=== PATIENT | male | born 1950 | race Caucasian/White ===

== ENCOUNTER → 2016-09-20 | Outpatient (CLI) | payer OTHER ==
--- NOTE | 2016-09-24 09:36 | DEXA ---
AP SPINE L1 - L4 1.156 -0.6 -0.4 LT FEMUR TOTAL 0.935 -1.2 -0.6 RT FEMUR TOTAL 0.820 -1.9 -1.4 TOTAL BODY TOTAL OTHER DUAL FEMUR FRAX* ASSESSMENT Risk factors: None. 10 year probability of fracture Major osteoporotic fracture 9.4 % Hip fracture 2.8 % COMMENTS: Normal bone densitometry of the spine. There is low bone density of the left hip. There is osteoporosis of the right hip. The density of the spine is increased 2.5% since 06/27/2011. The density of the left hip has decreased 0.1% since 06/27/2011. The density of the right hip has decreased 1.4% since 06/27/2011. FOLLOW-UP: Recommendation for the next bone density exam: 2 years. JOYCE
== END | disposition home or self-care (01) ==
LOC: M WHC 15:00
PROVIDERS: ATTEND Nurse Practitioner Family
DX: M81.0 Age-related osteoporosis without current pathological fracture (principal); M85.80 Other specified disorders of bone density and structure, unspecified site

== ENCOUNTER → 2016-10-29 | Outpatient (CLI) | payer MEDICARE, OTHER ==
[~2016-10-29] VITALS: Ht 167.6 cm; Wt 85.3 kg
[~2016-10-29] MED LIST: FLOM5CAP PO; HYDR25TAB PO; LIDOCAINE 2% INJ 100 MG/5 ML SYRINGE As Ordered ONE; LISI-542 PO; LR 1,000 ML IV SCH; OMEP40CA2 PO; PROPOFOL 200 MG/20 ML VIAL As Ordered ONE; SIMV40TA2 PO; TOVI8TAB PO
[2016-10-29 14:00] VITALS: BP 138/60
== END ==
LOC: M OPP 11:14
PROVIDERS: ATTEND Surgery
DX: Z12.11 Encounter for screening for malignant neoplasm of colon (principal); K57.30 Diverticulosis of large intestine without perforation or abscess without bleeding; K21.9 Gastro-esophageal reflux disease without esophagitis; K44.9 Diaphragmatic hernia without obstruction or gangrene; K31.7 Polyp of stomach and duodenum; I10 Essential (primary) hypertension; E78.00 Pure hypercholesterolemia, unspecified; R06.83 Snoring; N40.0 Benign prostatic hyperplasia without lower urinary tract symptoms; Z79.899 Other long term (current) drug therapy; Z88.0 Allergy status to penicillin; Z91.013 Allergy to seafood

== ENCOUNTER → 2017-03-07 | Outpatient (CLI) | payer OTHER ==
[~2017-03-07] MED LIST changes: -LIDOCAINE 2% INJ 100 MG/5 ML SYRINGE As Ordered ONE; -LR 1,000 ML IV SCH; -PROPOFOL 200 MG/20 ML VIAL As Ordered ONE
[2017-03-07 13:55] LABS: MEAN CORPUSCULAR HEMOGLOBIN 31.3 pg (27.0-33.0); MEAN CORPUSCULAR HGB CONC 34.4 g/dl (32.0-36.5); MEAN CORPUSCULAR VOLUME 90.8 fl (80.0-96.0); WHITE BLOOD COUNT 9.1 K/mm3 (4.0-10.0)
[2017-03-07 14:03] LABS: ALBUMIN 3.8 GM/DL (3.2-5.2); ALBUMIN/GLOBULIN RATIO 1.15 (1.00-1.93); BILIRUBIN,TOTAL 0.6 MG/DL (0.2-1.0); CALCIUM LEVEL 9.2 MG/DL (8.8-10.2); CREATININE FOR GFR 1.37 MG/DL (0.70-1.30); GLOMERULAR FILTRATION RATE 54.8 (>49); TOTAL PROTEIN 7.1 GM/DL (6.4-8.2)
== END ==
LOC: M WUC 08:56
PROVIDERS: ATTEND Nurse Practitioner Family
DX: K21.9 Gastro-esophageal reflux disease without esophagitis (principal); I10 Essential (primary) hypertension

== ENCOUNTER → 2017-05-07 | Outpatient (CLI) | payer OTHER ==
--- NOTE | 2017-05-07 09:00 | REP ---
RENAL AND BLADDER ULTRASOUND: Real-time sonographic evaluation of the kidneys performed. Kidneys are normal in size and echotexture, right kidney measuring 10.8 x 4.9 x 6.1 cm and left kidney 11.6 x 5.7 x 6.4 cm. There is no hydronephrosis bilaterally. No renal mass or nephrolithiasis is seen. Urinary bladder is not well distended measuring 4.2 x 2.1 x 4.6 cm with a total volume of 26 mL. There is no postvoid residual. IMPRESSION: No hydronephrosis. Urinary bladder not well evaluated. Signed by Marcos Perkins MD 05/07/2017 09:41 A
== END ==
LOC: M RAD 08:02
PROVIDERS: ATTEND Internal Medicine Nephrology
DX: N18.3 Chronic kidney disease, stage 3 (moderate) (principal)

== ENCOUNTER → 2017-11-06 | Outpatient (CLI) | payer OTHER | LOC: M WUC 09:29 | DX: N40.1 Benign prostatic hyperplasia with lower urinary tract symptoms (principal); Z12.5 Encounter for screening for malignant neoplasm of prostate | CPT/HCPCS: 84153 ==

== ENCOUNTER → 2018-03-27 | Outpatient (CLI) | payer OTHER ==
[2018-03-27 13:01] LABS: HEMATOCRIT 41.1 % (42.0-52.0); HEMOGLOBIN 13.8 g/dl (13.5-17.5); MEAN CORPUSCULAR HEMOGLOBIN 30.5 pg (27.0-33.0); MEAN CORPUSCULAR HGB CONC 33.6 g/dl (32.0-36.5); MEAN CORPUSCULAR VOLUME 90.7 fl (80.0-96.0); PLATELET COUNT, AUTOMATED 204 10^3/uL (150-450); RED BLOOD COUNT 4.53 10^6/uL (4.30-6.10); RED CELL DISTRIBUTION WIDTH 13.2 % (11.5-14.5); WHITE BLOOD COUNT 7.2 10^3/uL (4.0-10.0)
[2018-03-27 13:47] LABS: TOTAL 25(OH) VITAMIN D 47.5 NG/ML (30.0-100.0)
[2018-03-27 13:50] LABS: ALBUMIN 3.6 GM/DL (3.2-5.2); ALBUMIN/GLOBULIN RATIO 1.09 (1.00-1.93); ALKALINE PHOSPHATASE 50 U/L (45-117); ALT/SGPT 108 U/L (12-78); ANION GAP 6 MEQ/L (8-16); AST/SGOT 46 U/L (7-37); BILIRUBIN,TOTAL 0.6 MG/DL (0.2-1.0); BLOOD UREA NITROGEN 20 MG/DL (7-18); CALCIUM LEVEL 8.4 MG/DL (8.8-10.2); CARBON DIOXIDE LEVEL 33 MEQ/L (21-32); CHLORIDE LEVEL 105 MEQ/L (98-107); CHOLESTEROL LEVEL 139 MG/DL (<200); CHOLESTEROL RISK RATIO 3.971 (<5); CREATININE FOR GFR 1.29 MG/DL (0.70-1.30); GLOMERULAR FILTRATION RATE 58.6 (>42); GLUCOSE, FASTING 115 MG/DL (70-100); HDL CHOLESTEROL 35 MG/DL (>40); NON-HDL-C 104 MG/DL; POTASSIUM SERUM 3.7 MEQ/L (3.5-5.1); SODIUM LEVEL 144 MEQ/L (136-145); TOTAL PROTEIN 6.9 GM/DL (6.4-8.2); TRIGLYCERIDES LEVEL 130 MG/DL (<150)
== END ==
LOC: M WUC 09:31
DX: I10 Essential (primary) hypertension (principal); E78.4 Other hyperlipidemia; E55.9 Vitamin D deficiency, unspecified
CPT/HCPCS: 80053

== ENCOUNTER → 2018-09-30 | Outpatient (CLI) | payer OTHER ==
[~2018-09-30] MED LIST changes: +FLOM0.4C39 PO; -FLOM5CAP PO
[2018-09-30 12:27] LABS: ALBUMIN 3.7 GM/DL (3.2-5.2); BILIRUBIN,DIRECT 0.1 MG/DL (0.0-0.2); BILIRUBIN,TOTAL 0.5 MG/DL (0.2-1.0); CHOLESTEROL RISK RATIO 5.411 (<5); TOTAL PROTEIN 6.9 GM/DL (6.4-8.2)
== END ==
LOC: M WUC 10:16
PROVIDERS: ATTEND Nurse Practitioner Family
DX: E78.49 Other hyperlipidemia (principal)

== ENCOUNTER → 2018-12-29 | Outpatient (CLI) | payer OTHER ==
[2018-12-29 13:11] LABS: ALBUMIN 3.5 GM/DL (3.2-5.2); BILIRUBIN,DIRECT 0.2 MG/DL (0.0-0.2); BILIRUBIN,TOTAL 0.8 MG/DL (0.2-1.0); CHOLESTEROL RISK RATIO 4.606 (<5); TOTAL PROTEIN 7.2 GM/DL (6.4-8.2)
== END ==
LOC: M WUC 09:28
PROVIDERS: ATTEND Nurse Practitioner Family
DX: E78.49 Other hyperlipidemia (principal)

== ENCOUNTER 2019-01-12 15:29 | Emergency (ER) | payer OTHER ==
[~2019-01-12] VITALS: Ht 167.6 cm; Wt 90.9 kg
[2019-01-12] MEDS ORDERED: FINA5TAB2 (15:39)
[2019-01-12] MEDS ORDERED: VITA500045 (15:39)
[2019-01-12 15:56] LABS: BASO # 0.1 10^3/uL (0.0-0.2); BASO % 0.7 % (0.0-1.0); EOS # 0.2 10^3/uL (0.0-0.50); EOS % 2.3 % (0.0-3.0); HEMATOCRIT 46.7 % (42.0-52.0); HEMOGLOBIN 15.6 g/dl (13.5-17.5); LYMPH # 2.2 10^3/uL (1.5-4.5); LYMPH % 26.9 % (24.0-44.0); MEAN CORPUSCULAR HEMOGLOBIN 30.7 pg (27.0-33.0); MEAN CORPUSCULAR HGB CONC 33.4 g/dl (32.0-36.5); MEAN CORPUSCULAR VOLUME 91.9 fl (80.0-96.0); MONO # 0.5 10^3/uL (0.0-0.8); MONO % 6.4 % (0.0-5.0); NEUTROPHILS # 5.1 10^3/uL (1.8-7.7); NEUTROPHILS % 63.3 % (36.0-66.0); PLATELET COUNT, AUTOMATED 216 10^3/uL (150-450); RED BLOOD COUNT 5.08 10^6/uL (4.30-6.10); WHITE BLOOD COUNT 8.1 10^3/uL (4.0-10.0)
--- NOTE | 2019-01-12 16:03 | REP ---
Clinical: Acute chest pain . Comparison: 10/27/2012 Findings: The mediastinum and cardiac silhouette are stable and within normal limits for portable technique. The lung gregorio are clear without acute consolidation, effusion, or pneumothorax. Skeletal structures are intact. Impression: No acute cardiopulmonary process appreciated. Electronically Signed by Long Alford MD 01/12/2019 03:55 P
[2019-01-12] MEDS ORDERED: GI COCKTAIL 50ML BTL(HYOSCYAMINE/MAALOX/LIDOCAINE VISCOUS)(1:3:1) PO ONE (16:15)
[2019-01-12] MEDS ORDERED: ASPIRIN 325 MG TAB PO ONE (16:15)
[2019-01-12 16:24] LABS: INR 0.97
[2019-01-12 16:25] LABS: PARTIAL THROMBOPLASTIN TIME 46.2 SECONDS (25.4-37.6)
[2019-01-12 16:32] LABS: ALBUMIN 4.1 GM/DL (3.2-5.2); ALT/SGPT 115 U/L (12-78); BILIRUBIN,DIRECT 0.2 MG/DL (0.0-0.2); BILIRUBIN,TOTAL 0.6 MG/DL (0.2-1.0); BLOOD UREA NITROGEN 26 MG/DL (7-18); CALCIUM LEVEL 9.4 MG/DL (8.8-10.2); CARBON DIOXIDE LEVEL 30 MEQ/L (21-32); CHLORIDE LEVEL 106 MEQ/L (98-107); CPK CREATINE PHOSPHOKINASE 123 U/L (39-308); CREATININE FOR GFR 1.25 MG/DL (0.70-1.30); GLOMERULAR FILTRATION RATE > 60.0 (>42); GLUCOSE, FASTING 82 MG/DL (70-100); MB/CK RELATIVE INDEX 1.79 (< OR =4); POTASSIUM SERUM 3.8 MEQ/L (3.5-5.1); SODIUM LEVEL 142 MEQ/L (136-145); TOTAL PROTEIN 7.5 GM/DL (6.4-8.2); TROPONIN I < 0.02 NG/ML (< 0.10)
[2019-01-12] MEDS ORDERED: KETOROLAC 30 MG/ML VIAL (J1885) IV ONE (19:30)
[2019-01-12 20:42] LABS: CPK CREATINE PHOSPHOKINASE 110 U/L (39-308); MB/CK RELATIVE INDEX 1.55 (< OR =4); TROPONIN I < 0.02 NG/ML (< 0.10)
--- NOTE | 2019-01-12 21:10 | ECGEPIP ---
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
--- NOTE | 2019-01-12 21:16 | ECGEPIP ---
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
[2019-01-12] MEDS ORDERED: SUCR1TA PO (21:31)
[2019-01-12] MEDS ORDERED: ASPI81TA85 PO (21:31)
[2019-01-12 21:45] VITALS: BP 151/96
== END 2019-01-12 22:07 | disposition home or self-care (01) ==
LOC: M ED 15:29
DX: K21.9 Gastro-esophageal reflux disease without esophagitis (principal); I10 Essential (primary) hypertension; J45.909 Unspecified asthma, uncomplicated; N40.0 Benign prostatic hyperplasia without lower urinary tract symptoms; E78.5 Hyperlipidemia, unspecified; Z87.19 Personal history of other diseases of the digestive system; Z79.899 Other long term (current) drug therapy; Z88.0 Allergy status to penicillin; Z91.018 Allergy to other foods; F17.210 Nicotine dependence, cigarettes, uncomplicated
CPT/HCPCS: 71045; 80048; 80076; 82550; 82553; 84484; 85025; 85610; 85730; 93005; 93041; 94760; 96374; 99285; J1885

== ENCOUNTER → 2019-01-25 | Outpatient (CLI) | payer OTHER ==
[~2019-01-25] MED LIST changes: +ASPI81TA85 PO; +FINA5TAB2; +SUCR1TA PO; +VITA500045
--- NOTE | 2019-01-25 09:23 | REP ---
Right upper quadrant sonography: History: Abnormal liver function studies. Comparison study: No comparison sonography. Findings: Scanning through the right upper quadrant of the abdomen demonstrates a normal sized, thin-walled gallbladder without evidence of stone or polyp. Common bile duct is normal measuring 0.3 cm in greatest diameter. No focal liver lesion is seen. There is evidence of mild fatty infiltration of the liver. Liver size is normal. No pancreatic abnormality is observed. No right renal abnormality is seen. There is no evidence of ascites. The right kidney measures 10.3 x 4.4 x 5.1 cm. Impression: Evidence of mild fatty liver change. Otherwise negative right upper quadrant sonography. Electronically Signed by Nathen Loredo MD 01/25/2019 09:15 A
== END ==
LOC: M RAD 07:05
PROVIDERS: ATTEND Family Medicine
DX: R94.5 Abnormal results of liver function studies (principal)

== ENCOUNTER → 2019-01-28 | Outpatient (CLI) | payer OTHER ==
--- NOTE | 2019-02-02 07:43 | SLEEPHOME ---
DATE OF PROCEDURE: 01/28/2019 ORDERED BY: Dr. De La Cruz Diagnostic home sleep testing was performed due to concern for the obstructive sleep apnea syndrome. For testing, a nocturnal T3 respiratory monitoring device was used. Continuous record was made of pulse, oxygen saturation, airflow, chest and abdominal strain and body position. 10 hours and 59 minutes of data were reviewed. There were 7 hours and 35 minutes marked as time in bed. During the interval marked time in bed, there were 134 respiratory events identified of 10 seconds in duration or greater for a respiratory event index of 17.7. The events were obstructive. Baseline pulse rate 52 beats per minute, pulse rate ranged 45-85. Baseline saturation 94%. Saturations fell to 90%. Testing was performed in both the supine and nonsupine positions. IMPRESSION: Abnormal home sleep testing with repetitive respiratory events and oxygen desaturations to 90% with a respiratory event index of 17.7 is consistent with the obstructive sleep apnea syndrome. RECOMMENDATIONS: The patient should be referred for formal sleep evaluation.
== END ==
LOC: M SLEEP HO 09:41
PROVIDERS: ATTEND Internal Medicine Cardiovascular Disease
DX: R06.83 Snoring (principal)

== ENCOUNTER → 2019-04-16 | Outpatient (CLI) | payer OTHER ==
[~2019-04-16] MED LIST changes: -OMEP40CA2 PO; +OMEP40CA97 PO; -SIMV40TA2 PO; +SIMV40TA20 PO
[2019-04-16 13:10] LABS: HEMATOCRIT 42.9 % (42.0-52.0); HEMOGLOBIN 14.1 g/dl (13.5-17.5); MEAN CORPUSCULAR HGB CONC 32.9 g/dl (32.0-36.5); MEAN CORPUSCULAR VOLUME 94.3 fl (80.0-96.0); PLATELET COUNT, AUTOMATED 196 10^3/uL (150-450); RED BLOOD COUNT 4.55 10^6/uL (4.30-6.10)
[2019-04-16 13:20] LABS: ALBUMIN 3.6 GM/DL (3.2-5.2); BILIRUBIN,TOTAL 0.5 MG/DL (0.2-1.0); CALCIUM LEVEL 8.9 MG/DL (8.8-10.2); CHOLESTEROL RISK RATIO 3.848 (<5); CREATININE FOR GFR 1.36 MG/DL (0.70-1.30); POTASSIUM SERUM 4.7 MEQ/L (3.5-5.1); TOTAL PROTEIN 6.8 GM/DL (6.4-8.2)
[2019-04-16 13:23] LABS: TOTAL 25(OH) VITAMIN D 60.8 NG/ML (30.0-100.0)
[2019-04-16 13:35] LABS: HEMOGLOBIN A1c 5.7 %
== END ==
LOC: M WUC 09:08
PROVIDERS: ATTEND Nurse Practitioner Family
DX: K21.9 Gastro-esophageal reflux disease without esophagitis (principal); I10 Essential (primary) hypertension; R73.01 Impaired fasting glucose; E78.49 Other hyperlipidemia; E55.9 Vitamin D deficiency, unspecified

== ENCOUNTER → 2020-04-21 | Outpatient (CLI) | payer OTHER ==
[~2020-04-21] MED LIST changes: -ASPI81TA85 PO; +ASPI81TA86 PO
[2020-04-21 19:19] LABS: HEMATOCRIT 46.1 % (42.0-52.0); HEMOGLOBIN 14.9 g/dl (13.5-17.5); MEAN CORPUSCULAR HEMOGLOBIN 30.6 pg (27.0-33.0); MEAN CORPUSCULAR HGB CONC 32.3 g/dl (32.0-36.5); MEAN CORPUSCULAR VOLUME 94.7 fl (80.0-96.0); PLATELET COUNT, AUTOMATED 229 10^3/uL (150-450); RED BLOOD COUNT 4.87 10^6/uL (4.30-6.10)
[2020-04-21 20:09] LABS: ALBUMIN 3.7 GM/DL (3.2-5.2); BILIRUBIN,TOTAL 0.4 MG/DL (0.2-1.0); CALCIUM LEVEL 9.2 MG/DL (8.8-10.2); CHOLESTEROL RISK RATIO 5.129 (<5); CREATININE FOR GFR 1.44 MG/DL (0.70-1.30); GLOMERULAR FILTRATION RATE 51.3 (>42); POTASSIUM SERUM 4.3 MEQ/L (3.5-5.1); TOTAL 25(OH) VITAMIN D 40.3 NG/ML (30.0-100.0); TOTAL PROTEIN 7.3 GM/DL (6.4-8.2)
== END ==
LOC: M WUC 10:46
PROVIDERS: ATTEND Nurse Practitioner Family
DX: K21.9 Gastro-esophageal reflux disease without esophagitis (principal); I10 Essential (primary) hypertension; E78.5 Hyperlipidemia, unspecified; E55.9 Vitamin D deficiency, unspecified

== ENCOUNTER → 2020-07-25 | Outpatient (CLI) | payer OTHER ==
[2020-07-25 16:33] LABS: HEMATOCRIT 45.9 % (42.0-52.0); HEMOGLOBIN 14.4 g/dl (13.5-17.5); MEAN CORPUSCULAR HGB CONC 31.4 g/dl (32.0-36.5); MEAN CORPUSCULAR VOLUME 92.5 fl (80.0-96.0); PLATELET COUNT, AUTOMATED 233 10^3/uL (150-450); RED BLOOD COUNT 4.96 10^6/uL (4.30-6.10); WHITE BLOOD COUNT 8.4 10^3/uL (4.0-10.0)
[2020-07-25 16:37] LABS: ALBUMIN 4.2 GM/DL (3.2-5.2); BILIRUBIN,TOTAL 0.8 MG/DL (0.2-1.0); CALCIUM LEVEL 9.7 MG/DL (8.8-10.2); CHOLESTEROL RISK RATIO 4.378 (<5); CREATININE FOR GFR 1.47 MG/DL (0.70-1.30); GLOMERULAR FILTRATION RATE 50.1 (>42); POTASSIUM SERUM 4.7 MEQ/L (3.5-5.1); TOTAL PROTEIN 7.7 GM/DL (6.4-8.2)
== END ==
LOC: M WUC 13:42
PROVIDERS: ATTEND Nurse Practitioner Family
DX: K21.9 Gastro-esophageal reflux disease without esophagitis (principal); E78.5 Hyperlipidemia, unspecified; E55.9 Vitamin D deficiency, unspecified; I10 Essential (primary) hypertension

== ENCOUNTER → 2020-09-15 | Outpatient (CLI) | payer OTHER ==
--- NOTE | 2020-09-15 09:56 | REP ---
INDICATION: FAMILY HISTORY AAA. COMPARISON: None. TECHNIQUE: Retroperitoneal sonography. Abdominal aortic evaluation. FINDINGS: Scanning through the retroperitoneum demonstrates that the abdominal aorta is obscured by abdominal gas proximally at the diaphragmatic hiatus and renal artery origin level.. The measurements of the aorta at the level of the mid abdominal aorta is 2.0 x 2.0 cm, AP by transverse dimension respectively. The distal aorta tapers to 1.8 x 1.7 cm AP by transverse dimension. The right and left common iliac arteries are normal measuring 0.9 and 0.9 cm in AP dimension respectively. No aneurysm is seen. No periaortic disease is observed. IMPRESSION: The proximal abdominal aorta is obscured by bowel gas at the level of the diaphragmatic hiatus and renal artery origins. No infrarenal abdominal aortic aneurysm is seen.. <Electronically signed by Jonatan Loredo > 09/15/20 [id number]
== END ==
LOC: M RAD 08:56
PROVIDERS: ATTEND Internal Medicine Cardiovascular Disease
DX: Z79.899 Other long term (current) drug therapy (principal); Z82.49 Family history of ischemic heart disease and other diseases of the circulatory system

== ENCOUNTER → 2020-10-26 | Outpatient (CLI) | payer OTHER ==
[~2020-10-26] MED LIST changes: +HYDR-3490 PO; -HYDR25TAB PO; -LISI-542 PO; +LISI-898 PO
[2020-10-26 16:33] LABS: ALBUMIN 3.7 GM/DL (3.2-5.2); BILIRUBIN,TOTAL 0.7 MG/DL (0.2-1.0); CALCIUM LEVEL 9.4 MG/DL (8.8-10.2); CREATININE FOR GFR 1.58 MG/DL (0.70-1.30); GLOMERULAR FILTRATION RATE 46.1 (>42); POTASSIUM SERUM 4.2 MEQ/L (3.5-5.1); TOTAL PROTEIN 6.9 GM/DL (6.4-8.2)
== END ==
LOC: M WUC 13:00
PROVIDERS: ATTEND Nurse Practitioner Family
DX: I10 Essential (primary) hypertension (principal)

== ENCOUNTER → 2020-11-10 | Outpatient (CLI) | payer OTHER ==
--- NOTE | 2020-11-10 17:29 | REP ---
INDICATION: LUNG SCREENING. COMPARISON: None. TECHNIQUE: The study is performed without IV contrast. The images are presented at lung windowing only. FINDINGS: There is a 7 mm lung nodule peripherally in the right upper lobe on image 38. There is a 6 mm pleural-based lung nodule peripherally in the right upper lobe on image 49. There is a pleural-based 6 mm lung nodule in the left lower lobe on image 70. All of the is nodules are category 3 lung nodules with the probability of malignancy 1-2%. Follow-up chest CT in 6 months is recommended. There are no other lung nodules. There are no infiltrates or pleural effusions. IMPRESSION: Category 3 low-dose lung screening CT of the chest. The probability of malignancy is 1-2%. Follow-up chest CT in 6 months is recommended for further evaluation of these nodules. <Electronically signed by Marcos Espitia > 11/10/20 [id number]
== END ==
LOC: M RAD 14:54
PROVIDERS: ATTEND Physician Assistant
DX: Z12.2 Encounter for screening for malignant neoplasm of respiratory organs (principal); R91.8 Other nonspecific abnormal finding of lung field; Z87.891 Personal history of nicotine dependence

== ENCOUNTER → 2021-01-25 | Outpatient (CLI) | payer OTHER ==
[2021-01-25 09:45] LABS: HEMATOCRIT 46.9 % (42.0-52.0); HEMOGLOBIN 15.1 g/dl (13.5-17.5); MEAN CORPUSCULAR HEMOGLOBIN 29.7 pg (27.0-33.0); MEAN CORPUSCULAR HGB CONC 32.2 g/dl (32.0-36.5); MEAN CORPUSCULAR VOLUME 92.1 fl (80.0-96.0); PLATELET COUNT, AUTOMATED 217 10^3/uL (150-450); RED BLOOD COUNT 5.09 10^6/uL (4.30-6.10); WHITE BLOOD COUNT 8.8 10^3/uL (4.0-10.0)
[2021-01-25 10:19] LABS: ALBUMIN 3.9 GM/DL (3.2-5.2); BILIRUBIN,TOTAL 0.6 MG/DL (0.2-1.0); CALCIUM LEVEL 9.6 MG/DL (8.8-10.2); CHOLESTEROL RISK RATIO 4.8 (<5); CREATININE FOR GFR 1.39 MG/DL (0.70-1.30); GLOMERULAR FILTRATION RATE 53.5 (>42); POTASSIUM SERUM 4.7 MEQ/L (3.5-5.1); TOTAL PROTEIN 7.5 GM/DL (6.4-8.2)
[2021-01-25 10:23] LABS: TOTAL 25(OH) VITAMIN D 34.8 NG/ML (30.0-100.0)
[2021-01-25 10:45] LABS: HEMOGLOBIN A1c 5.8 %
== END ==
LOC: M WUC 08:38
PROVIDERS: ATTEND Nurse Practitioner Family
DX: I10 Essential (primary) hypertension (principal); K21.9 Gastro-esophageal reflux disease without esophagitis; R73.01 Impaired fasting glucose; E78.5 Hyperlipidemia, unspecified; E55.9 Vitamin D deficiency, unspecified

== ENCOUNTER → 2021-05-16 | Outpatient (CLI) | payer OTHER ==
[~2021-05-16] MED LIST changes: +OMEP40CA4 PO; -OMEP40CA97 PO
[2021-05-16 12:34] LABS: ALBUMIN 3.5 GM/DL (3.2-5.2); BILIRUBIN,TOTAL 0.7 MG/DL (0.2-1.0); CALCIUM LEVEL 8.5 MG/DL (8.8-10.2); CHOLESTEROL RISK RATIO 4.531 (<5); CREATININE FOR GFR 1.5 MG/DL (0.70-1.30); GLOMERULAR FILTRATION RATE 48.8 (>42); POTASSIUM SERUM 3.9 MEQ/L (3.5-5.1); TOTAL 25(OH) VITAMIN D 34.4 NG/ML (30.0-100.0); TOTAL PROTEIN 7.1 GM/DL (6.4-8.2)
== END ==
LOC: M WUC 09:30
PROVIDERS: ATTEND Nurse Practitioner Family
DX: E78.5 Hyperlipidemia, unspecified (principal); E55.9 Vitamin D deficiency, unspecified; Z79.899 Other long term (current) drug therapy

== ENCOUNTER → 2021-06-11 | Outpatient (CLI) | payer OTHER ==
--- NOTE | 2021-06-11 09:27 | REP ---
INDICATION: ABN FINDING OF LUNG- HAS US APPT 0800. COMPARISON: None. TECHNIQUE: Imaging protocol: Computed tomography of the chest without IV contrast. Contiguous 3 mm thick axial projection images were obtained through the chest. 2D sagittal and coronal reconstructions were performed. Radiation optimization: All CT scans at this facility use at least one of these dose optimization techniques: automated exposure control; mA and/or kV adjustment per patient size (includes targeted exams where dose is matched to clinical indication); or iterative reconstruction. FINDINGS: Lower neck: The thyroid gland is normal. There is no supraclavicular lymphadenopathy. Mediastinum: There are few, not pathologically enlarged, mediastinal lymph nodes. Heart/thoracic aorta: The heart size is normal. There is no pericardial effusion. There is calcific vascular disease of the thoracic aorta and coronary arteries. Upper abdomen: There is fatty liver infiltration. There is a benign splenule anterior to the spleen. There is calcific vascular disease of the abdominal aorta. Thoracic esophagus: Normal. Chest wall and axilla: There is bilateral gynecomastia. There is no axillary lymphadenopathy. There are no significant bony abnormalities of the chest. Lung parenchyma: There is moderate upper lobe predominant emphysema with both centrilobular and paraseptal components. There is a 5 x 4 mm soft tissue density nodule in the anterior segment of the upper lobe of the right lung (image 45). There is a 4 x 3 mm pleural based soft tissue density nodule in the middle lobe the right lung (image 57), consistent with a pleural lymph node. There is a 4 x 4 mm pleural based soft tissue density nodule in the lateral basal segment of the lower lobe of the left lung (image 73), consistent with a pleural lymph node. There are no pleural effusions. IMPRESSION: 1. Emphysema. 2. Soft tissue density nodule in the upper lobe of the right lung. 3. Reactive pleural lymph nodes bilaterally. 4. Calcific vascular disease of the thoracoabdominal aorta and coronary arteries. 5. Fatty liver infiltration. 6. Bilateral gynecomastia. RECOMMENDATION: Follow-up low-dose chest CT in 6 months. <Electronically signed by Jose F Lilly > 06/11/21 [id number]
== END ==
LOC: M RAD 07:47
PROVIDERS: ATTEND Physician Assistant
DX: R91.8 Other nonspecific abnormal finding of lung field (principal)

== ENCOUNTER → 2021-06-11 | Outpatient (CLI) | payer OTHER ==
--- NOTE | 2021-06-11 08:34 | REP ---
INDICATION: FATTY LIVER. COMPARISON: None. TECHNIQUE: Multiple ultrasound images of the right upper quadrant of the abdomen were obtained. FINDINGS: There is moderate fatty liver infiltration. There is focal sparing adjacent to the gallbladder fossa. The gallbladder appears normal. The gallbladder wall is normal in thickness. The common bile duct measures 4 mm in diameter. Pancreas is obscured by overlying bowel gas. The right kidney measures 11.2 x 5.9 x 5.3 cm. There is a 14 mm in diameter cortical cyst in the interpolar region of the right kidney. IMPRESSION: 1. Fatty liver infiltration. 2. Benign cortical cyst, right kidney. <Electronically signed by Jose F Lilly > 06/11/21 [id number]
== END ==
LOC: M RAD 07:44
PROVIDERS: ATTEND Family Medicine
DX: K76.0 Fatty (change of) liver, not elsewhere classified (principal)

== ENCOUNTER 2021-07-19 16:53 | Emergency (ER) | payer OTHER ==
[~2021-07-19] VITALS: Ht 167.6 cm; Wt 95.5 kg
[~2021-07-19 16:53] MED LIST changes: -LISI-898 PO; +LISI5TAB11 PO
[2021-07-19] MEDS ORDERED: ADVA230A (16:59)
[2021-07-19] MEDS ORDERED: ALBU8.5H (16:59)
[2021-07-19] MEDS ORDERED: INCR1INH (16:59)
[2021-07-20] MEDS ORDERED: NORCO 5/325MG TABLET (BULK FOR ED) PO ONE (02:55)
[2021-07-20] MEDS ORDERED: HYDR-3713 PO (02:59)
[2021-07-20 03:17] VITALS: BP 160/78
== END 2021-07-20 03:19 | disposition home or self-care (01) ==
LOC: M ED 16:53
DX: S22.32XA Fracture of one rib, left side, initial encounter for closed fracture (principal); S80.212A Abrasion, left knee, initial encounter; W01.0XXA Fall on same level from slipping, tripping and stumbling without subsequent striking against object, initial encounter; Y92.009 Unspecified place in unspecified non-institutional (private) residence as the place of occurrence of the external cause; Y93.9 Activity, unspecified; Y99.9 Unspecified external cause status; J45.909 Unspecified asthma, uncomplicated; E78.5 Hyperlipidemia, unspecified; N40.0 Benign prostatic hyperplasia without lower urinary tract symptoms; Z88.0 Allergy status to penicillin; Z91.013 Allergy to seafood; Z79.82 Long term (current) use of aspirin; Z79.899 Other long term (current) drug therapy

== ENCOUNTER → 2021-11-19 | Outpatient (CLI) | payer OTHER ==
[~2021-11-19] MED LIST changes: +ADVA230A; +ALBU8.5H; +HYDR-3713 PO; +INCR1INH
[2021-11-19 13:18] LABS: HEMOGLOBIN A1c 5.7 %
[2021-11-19 13:40] LABS: ALBUMIN 3.5 GM/DL (3.2-5.2); BILIRUBIN,TOTAL 0.7 MG/DL (0.2-1.0); CALCIUM LEVEL 8.9 MG/DL (8.8-10.2); CHOLESTEROL RISK RATIO 4.764 (<5); CREATININE FOR GFR 1.48 MG/DL (0.70-1.30); GLOMERULAR FILTRATION RATE 49.6 (>42); POTASSIUM SERUM 4.3 MEQ/L (3.5-5.1); TOTAL PROTEIN 6.9 GM/DL (6.4-8.2)
== END ==
LOC: M WUC 09:27
PROVIDERS: ATTEND Family Medicine
DX: K76.0 Fatty (change of) liver, not elsewhere classified (principal); R73.03 Prediabetes; E78.5 Hyperlipidemia, unspecified

== ENCOUNTER → 2022-06-27 | Outpatient (CLI) | payer OTHER | LOC: M RAD 13:53 | PROVIDERS: ATTEND Physician Assistant | DX: Z87.891 Personal history of nicotine dependence (principal) ==

== ENCOUNTER → 2022-09-06 | Outpatient (CLI) | payer OTHER ==
[2022-09-06 17:17] LABS: HEMATOCRIT 45.5 % (42.0-52.0); HEMOGLOBIN 14.5 g/dl (13.5-17.5); MEAN CORPUSCULAR HEMOGLOBIN 30.1 pg (27.0-33.0); MEAN CORPUSCULAR HGB CONC 31.9 g/dl (32.0-36.5); MEAN CORPUSCULAR VOLUME 94.6 fl (80.0-96.0); PLATELET COUNT, AUTOMATED 251 10^3/uL (150-450); RED BLOOD COUNT 4.81 10^6/uL (4.30-6.10); WHITE BLOOD COUNT 9.1 10^3/uL (4.0-10.0)
[2022-09-06 17:26] LABS: HEMOGLOBIN A1c 6.1 % (4.0-6.0)
[2022-09-06 17:34] LABS: ALBUMIN 3.8 G/DL (3.2-5.2); BILIRUBIN,TOTAL 0.7 MG/DL (0.3-1.2); CHOLESTEROL RISK RATIO 5.92 (<5); CREATININE FOR GFR 1.46 MG/DL (0.70-1.30); GLOMERULAR FILTRATION RATE 50.2 (>42); HDL CHOLESTEROL 28.7 MG/DL (>40); LDL CHOLESTEROL 94.1 MG/DL (<100); POTASSIUM SERUM 4.2 MMOL/L (3.5-5.1); TOTAL PROTEIN 7.4 G/DL (5.7-8.2)
== END ==
LOC: M WUC 11:02
PROVIDERS: ATTEND Nurse Practitioner Family
DX: E78.5 Hyperlipidemia, unspecified (principal); K21.9 Gastro-esophageal reflux disease without esophagitis; K76.0 Fatty (change of) liver, not elsewhere classified; R73.03 Prediabetes; N40.1 Benign prostatic hyperplasia with lower urinary tract symptoms
CPT/HCPCS: 36415; 80053; 80061; 82977; 83036; 85027; G0103

== ENCOUNTER → 2022-09-18 | Outpatient (REF) | payer OTHER | LOC: M SFHCCLAY 14:55 | PROVIDERS: ATTEND Nurse Practitioner Family | DX: R73.03 Prediabetes (principal); Z53.9 Procedure and treatment not carried out, unspecified reason ==

== ENCOUNTER → 2022-10-07 | Outpatient (CLI) | payer OTHER ==
[2022-10-07 17:58] LABS: FREE T4 0.98 NG/DL (0.89-1.76)
[2022-10-07 17:59] LABS: THYROID STIMULATING HORMONE 1.047 uIU/ML (0.55-4.78)
== END ==
LOC: M WUC 14:29
PROVIDERS: ATTEND Nurse Practitioner Family
DX: R73.03 Prediabetes (principal)

== ENCOUNTER → 2022-10-09 | Outpatient (REF) | payer OTHER ==
[2022-10-09 16:02] LABS: APPEARANCE, URINE CLEAR (CLEAR); BACTERIA, URINE AUTO NEGATIVE (NEGATIVE); BILIRUBIN, URINE AUTO NEGATIVE (NEGATIVE); BLOOD, URINE BLOOD NEGATIVE (NEGATIVE); COLOR, URINE YELLOW (YELLOW); GLUCOSE, URINE (UA) AUTO 1+ mg/dL (NEGATIVE); KETONE, URINE AUTO NEGATIVE (NEGATIVE); LEUKOCYTE ESTERASE, URINE AUTO NEGATIVE (NEGATIVE); MUCUS, URINE SMALL (NEGATIVE); NITRITE, URINE AUTO NEGATIVE (NEGATIVE); PROTEIN, URINE AUTO NEGATIVE (NEGATIVE); RBC, URINE AUTO 0 /HPF (0-3); SPECIFIC GRAVITY URINE AUTO 1.023 (1.002-1.035); SQUAMOUS EPITHELIAL CELL UR AU 1 /HPF (0-6); WBC, URINE AUTO 1 /HPF (0-3)
== END ==
LOC: M SMT 15:19
PROVIDERS: ATTEND Physician Assistant
DX: N40.1 Benign prostatic hyperplasia with lower urinary tract symptoms (principal)

== ENCOUNTER 2023-01-02 07:59 | Day surgery (SDC) | payer OTHER ==
[~2023-01-02] VITALS: Ht 167.6 cm; Wt 100.7 kg
[~2023-01-02 07:59] MED LIST changes: -ADVA230A; +ADVA230A INH; -ALBU8.5H; +ALBU8.5H INH; +BAYE81TA10 PO; +ERGO500029 PO; -FINA5TAB2; +FINA5TAB2 PO; -INCR1INH; +INCR1INH INH; +NS 1,000 ML IV ONE; +OMEP40CA5 PO; +SENN-83 PO; +SIMV20TA22 PO
[2023-01-02 10:00] VITALS: BP 117/87
== END 2023-01-02 10:10 | disposition home or self-care (01) ==
LOC: M OPP 07:59
PROVIDERS: ATTEND Internal Medicine Gastroenterology
DX: Z12.11 Encounter for screening for malignant neoplasm of colon (principal); K57.30 Diverticulosis of large intestine without perforation or abscess without bleeding; K64.4 Residual hemorrhoidal skin tags; K64.8 Other hemorrhoids; Z87.891 Personal history of nicotine dependence; Z79.02 Long term (current) use of antithrombotics/antiplatelets; Z79.52 Long term (current) use of systemic steroids; Z79.891 Long term (current) use of opiate analgesic; Z79.899 Other long term (current) drug therapy; Z88.0 Allergy status to penicillin; Z91.013 Allergy to seafood

== ENCOUNTER → 2023-03-12 | Outpatient (REF) | payer OTHER ==
[~2023-03-12] MED LIST changes: -NS 1,000 ML IV ONE
[2023-03-12 17:39] LABS: THYROID STIMULATING HORMONE 1.183 uIU/ML (0.55-4.78)
[2023-03-12 17:41] LABS: ALBUMIN 3.5 G/DL (3.2-5.2); BILIRUBIN,TOTAL 0.6 MG/DL (0.3-1.2); CALCIUM LEVEL 9.3 MG/DL (8.3-10.6); CHOLESTEROL RISK RATIO 4.59 (<5); CREATININE FOR GFR 1.31 MG/DL (0.70-1.30); FREE T4 1.12 NG/DL (0.89-1.76); GLOMERULAR FILTRATION RATE 56.8 (>42); HDL CHOLESTEROL 32.2 MG/DL (>40); LDL CHOLESTEROL 68.6 MG/DL (<100); NON-HDL-C 115.8 MG/DL; POTASSIUM SERUM 4.6 MMOL/L (3.5-5.1); TOTAL PROTEIN 6.8 G/DL (5.7-8.2)
== END ==
LOC: M LABWUC 16:28
PROVIDERS: ATTEND Nurse Practitioner Family
DX: R73.03 Prediabetes (principal); E78.5 Hyperlipidemia, unspecified; K76.0 Fatty (change of) liver, not elsewhere classified

== ENCOUNTER → 2023-04-29 | Outpatient (CLI) | payer OTHER | LOC: M CLY 11:29 | PROVIDERS: ATTEND Physician Assistant | DX: M25.561 Pain in right knee (principal) ==

== ENCOUNTER → 2023-06-11 | Outpatient (CLI) | payer OTHER ==
[2023-06-11 13:17] LABS: ALBUMIN 3.5 G/DL (3.2-5.2); BILIRUBIN,TOTAL 0.8 MG/DL (0.3-1.2); CALCIUM LEVEL 8.7 MG/DL (8.3-10.6); CREATININE FOR GFR 1.32 MG/DL (0.70-1.30); GLOMERULAR FILTRATION RATE 56.3 (>42); POTASSIUM SERUM 3.9 MMOL/L (3.5-5.1); TOTAL PROTEIN 6.6 G/DL (5.7-8.2)
[2023-06-11 13:43] LABS: HEMOGLOBIN A1c 6.1 % (4.0-6.0)
== END ==
LOC: M WUC 10:21
PROVIDERS: ATTEND Nurse Practitioner Family
DX: R73.03 Prediabetes (principal); N18.31 Chronic kidney disease, stage 3a

== ENCOUNTER → 2023-06-11 | Outpatient (CLI) | payer OTHER ==
[2023-06-11 13:16] LABS: ALBUMIN 3.5 G/DL (3.2-5.2); BILIRUBIN,DIRECT 0.3 MG/DL (<0.4); BILIRUBIN,TOTAL 0.9 MG/DL (0.3-1.2); CALCIUM LEVEL 8.6 MG/DL (8.3-10.6); CREATININE FOR GFR 1.35 MG/DL (0.70-1.30); GLOMERULAR FILTRATION RATE 54.8 (>42); TOTAL PROTEIN 6.6 G/DL (5.7-8.2)
[2023-06-11 13:34] LABS: INR 1.11; PARTIAL THROMBOPLASTIN TIME 33.2 SECONDS (24.8-34.2)
== END ==
LOC: M WUC 10:18
PROVIDERS: ATTEND Internal Medicine Gastroenterology
DX: K57.30 Diverticulosis of large intestine without perforation or abscess without bleeding (principal)

== ENCOUNTER → 2023-07-03 | Outpatient (CLI) | payer OTHER | LOC: M RAD 09:32 | PROVIDERS: ATTEND Physician Assistant | DX: Z87.891 Personal history of nicotine dependence (principal) ==

== ENCOUNTER → 2024-01-02 | Outpatient (CLI) | payer MEDICARE, OTHER ==
[2024-01-02 14:06] LABS: HEMOGLOBIN A1c 6.7 % (4.0-6.0)
[2024-01-02 14:18] LABS: ALBUMIN 3.6 G/DL (3.2-5.2); BILIRUBIN,TOTAL 0.6 MG/DL (0.3-1.2); CALCIUM LEVEL 9.3 MG/DL (8.3-10.6); CREATININE FOR GFR 1.71 MG/DL (0.70-1.30); GLOMERULAR FILTRATION RATE 41.8 (>42); HDL CHOLESTEROL 30.6 MG/DL (>40); LDL CHOLESTEROL 91.2 MG/DL (<100); NON-HDL-C 122.4 MG/DL; POTASSIUM SERUM 4.6 MMOL/L (3.5-5.1); TOTAL PROTEIN 6.8 G/DL (5.7-8.2)
[2024-01-02 14:20] LABS: TOTAL 25(OH) VITAMIN D 45.6 NG/ML (20.0-100.0)
== END ==
LOC: M WUC 09:58
PROVIDERS: ATTEND Nurse Practitioner Family
DX: E55.9 Vitamin D deficiency, unspecified (principal); I10 Essential (primary) hypertension; R73.01 Impaired fasting glucose

== ENCOUNTER → 2024-05-14 | Outpatient (CLI) | payer MEDICARE ==
[~2024-05-14] MED LIST changes: +SENN-187 PO; -SENN-83 PO
== END ==
LOC: M SOG 10:31
PROVIDERS: ATTEND Physician Assistant
DX: M25.562 Pain in left knee (principal)

== ENCOUNTER → 2024-08-09 | Outpatient (CLI) | payer MEDICARE | LOC: M RAD 16:30 | PROVIDERS: ATTEND Physician Assistant | DX: Z12.2 Encounter for screening for malignant neoplasm of respiratory organs (principal); Z87.891 Personal history of nicotine dependence ==

== ENCOUNTER → 2024-08-20 | Outpatient (CLI) | payer MEDICARE | LOC: M WHC 08:08 | PROVIDERS: ATTEND Nurse Practitioner Family | DX: R74.8 Abnormal levels of other serum enzymes (principal) ==

== ENCOUNTER → 2024-08-31 | Outpatient (CLI) | payer MEDICARE | LOC: M SOG 07:55 | PROVIDERS: ATTEND Physician Assistant | DX: M17.11 Unilateral primary osteoarthritis, right knee (principal) ==

== ENCOUNTER → 2025-07-20 | Outpatient (REF) | payer MEDICARE ==
[~2025-07-20] MED LIST changes: -FLOM0.4C39 PO; +TAMS-18 PO
== END ==
LOC: M SFHCCLAY 13:53
PROVIDERS: ATTEND Nurse Practitioner Family
DX: Z53.9 Procedure and treatment not carried out, unspecified reason (principal)

== ENCOUNTER → 2025-08-16 | Outpatient (CLI) | payer MEDICARE | LOC: M RAD 14:31 | PROVIDERS: ATTEND Physician Assistant | DX: Z87.891 Personal history of nicotine dependence (principal) ==